=== PATIENT | female | born 1975 | race Caucasian/White ===

== ENCOUNTER 2016-07-09 15:04 | Emergency (ER) | payer SELFPAY ==
[~2016-07-09 15:04] MED LIST: ATV1 PO; DENIES HOME MEDS; LIOR10 PO; LYRICA75 PO; METHOC500B PO; NEUR600 PO; NORCO1 TA1 PO; TOPAMAX25 PO
== END 2016-07-09 15:30 | disposition home or self-care (01) ==
LOC: ER 15:04
DX: J20.9 Acute bronchitis, unspecified (principal); F17.200 Nicotine dependence, unspecified, uncomplicated; Z88.8 Allergy status to other drugs, medicaments and biological substances; Z88.5 Allergy status to narcotic agent; Z79.899 Other long term (current) drug therapy
CPT/HCPCS: 99283